=== PATIENT | female | born 1975 | race African-American/Black ===

== ENCOUNTER 2017-07-26 10:03 | Emergency (ER) | payer SELFPAY ==
[~2017-07-26] VITALS: Ht 167.6 cm; Wt 80.0 kg
[~2017-07-26 10:03] MED LIST: DOXY100T PO; LORT7.5T3 PO; SULF1TAB47 PO; Z.0.NO CURRENT MEDS
[2017-07-26 10:13] VITALS: BP 99/61; PULSE 79; RESP 18; TEMP 98.2; O2SAT 99
== END 2017-07-26 11:00 | disposition left against medical advice (07) ==
LOC: NETRI 10:03
DX: R05 Cough (principal); R06.02 Shortness of breath; Z53.21 Procedure and treatment not carried out due to patient leaving prior to being seen by health care provider
CPT/HCPCS: 99281

== ENCOUNTER 2017-08-10 09:23 | Emergency (ER) | payer SELFPAY | END 2017-08-10 10:46 | disposition home or self-care (01) | LOC: NEPD 09:23 | DX: J40 Bronchitis, not specified as acute or chronic (principal); F17.210 Nicotine dependence, cigarettes, uncomplicated | CPT/HCPCS: 71046; 99283 ==